=== PATIENT | male | born 1965 | race Caucasian/White ===

== ENCOUNTER 2021-04-04 20:48 | Emergency (ER) | payer MEDICARE, SELFPAY ==
[2021-04-04 20:56] VITALS: BP 148/116; PULSE 94; RESP 22; TEMP 36.8; O2SAT 95; BMI 32.3
--- NOTE | 2021-04-04 21:01 | CTR_ITS ---
PROCEDURE INFORMATION: Exam: CT Head Without Contrast Exam date and time: 04/04/2021 9:01 PM Age: 55 years old Clinical indication: Pain; Headache TECHNIQUE: Imaging protocol: Computed tomography of the head without contrast. Radiation optimization: All CT scans at this facility use at least one of these dose optimization techniques: automated exposure control; mA and/or kV adjustment per patient size (includes targeted exams where dose is matched to clinical indication); or iterative reconstruction. COMPARISON: No relevant prior studies available. RADIATION DOSE METRICS: Total DLP (mGy-cm): 1605.92 FINDINGS: Brain: Normal. No hemorrhage. Unremarkable white matter. No mass effect. Cerebral ventricles: No ventriculomegaly. Paranasal sinuses: Visualized sinuses are unremarkable. No fluid levels. Mastoid air cells: Visualized mastoid air cells are well aerated. Bones/joints: Unremarkable. No acute fracture. Soft tissues: Unremarkable. CT/CT head wo con* [id number] IMPRESSION: Negative for intracranial hemorrhage or mass effect. Radiation Dose CTDIVOL = (mGy): DLP = 1605.92 (mGy-cm)
--- NOTE | 2021-04-04 21:03 | W.ED.GENADLT ---
HPI - General Adult General: Chief complaint: Headache Stated complaint: HEAD PAIN Time Seen by Provider: 04/04/21 20:59 History of Present Illness: HPI narrative: This patient is a 55-year-old male who presents to the emergency department for severe headache. Patient states he has had his headache for the couple days. Patient states he has a long history of chronic headaches and he recently came down to visit his mother from [place]. When asked with patient takes pain medications he states gabapentin another stopped but would not elaborate what he takes. Advised the patient 1 more and happy to help him with his headache and I have ordered Toradol Benadryl Reglan combo for his headache. Patient states he has not had a CT scan of the head so will obtain a CT of the head. We will also get a urine drug screen on the patient. Patient states understanding. Onset (ago): day(s) Location: head Radiation: non-radiation Quality: aching and sharp Associated symptoms: Reports headache(s); Deny chest pain, dyspnea, nausea, rash, palpitations or vomiting Review of Systems General: Reports: 10 or more systems reviewed and unremarkable except in HPI and below Const: Denies: fever(s), chills, body aches or fatigue Eyes: Denies: change in vision or blurry vision ENMT: Denies: throat pain, hoarseness or mouth pain Card: Denies: chest pain, palpitations, irregular heart rhythm, edema, swelling of feet/ankles or lightheadedness Resp: Denies: dyspnea, productive cough, non-productive cough, wheezing or pain on inspiration GI: Denies: abdominal pain, nausea or vomiting : Denies: flank pain, dysuria, urinary frequency, urinary urgency or urinary hesitancy Musc: Denies: neck pain, back pain, extremity pain, extremity swelling, joint pain, joint swelling, joint redness, joint warmth or limited range of motion Skin/Breast: Denies: rash, pruritus, erythema or skin tenderness Neuro: Reports: headache(s); Denies: numbness in extremities or weakness in extremities Psych: Denies: anxiety or depression Physical Exam Const: COMMON NORMALS: no acute distress, average body habitus, patient oriented x3, no limitations, healthy appearing, alert and well nourished HENMT: COMMON NORMALS: normocephalic, atraumatic, hearing grossly normal bilaterally, external ears normal, EAC's normal, TM's normal bilaterally, Normal external nose present, Normal nasal mucous membranes and turbinates present, moist oral mucous membranes, oropharynx normal, dentition normal and gingiva normal HEAD & SCALP: normocephalic and atraumatic NOSE: Normal external nose present and Normal nasal mucous membranes and turbinates present EXTERNAL EAR: Yes external ears normal EXTERNAL AUDITORY CANAL: EAC's normal TYMPANIC MEMBRANE: TM's normal bilaterally Neck/C-Spine: COMMON NORMALS: full ROM, no lymphadenopathy, supple, no meningeal signs, no JVD, Thyroid normal and No carotid bruits THYROID: Thyroid normal Chest: COMMONS NORMALS: normal inspection of the chest, normal palpation of entire chest wall, normal inspection of the breasts and normal palpation of the breasts Breast/axilla inspection: Yes normal inspection of the breasts BREAST/AXILLA PALPATION: Yes normal palpation of the breasts Resp: COMMON NORMALS: normal respiratory effort, No retractions, No use of accessory muscles, clear to auscultation bilaterally and percussion normal AUSCULTATION: clear to auscultation bilaterally PERCUSSION: percussion normal Cardio: COMMON NORMALS: no JVD, regular rate, regular rhythm, S1 normal heart sound present, S2 normal heart sound present, No gallops present (Cardio), No clicks present (Cardio), No murmurs present (Cardio), No rub (Cardio) and Peripheral pulses 2+ throughout RATE: regular rate RHYTHM: regular rhythm HEART SOUNDS: S1 normal heart sound present and S2 normal heart sound present PERIPHERAL PULSES: Peripheral pulses 2+ throughout GI: COMMON NORMALS: Normal to inspection, nondistended, normoactive bowel sounds present, Soft to palpation, non-tender, No hepatosplenomegaly present, no masses and no bruits PALPATION: Yes Soft to palpation and Yes No hepatosplenomegaly present : COMMON NORMALS: Yes no CVA tenderness BLADDER/KIDNEY EXAM: Yes no CVA tenderness Back/Pelvis: COMMON NORMALS: no CVA tenderness, thoracic and lumbar spine normal to inspection, no thoracic nor lumbar tenderness, thoraco-lumbar ROM normal and straight leg raise negative bilaterally Extremity: COMMON NORMALS: normal to inspection, full ROM, capillary refill normal, no joint enlargement, no clubbing, cyanosis or edema, no calf tenderness and no pedal edema Neuro: COMMON NORMALS: patient oriented x3 SENSORIUM/ORIENTATION: Yes alert MENINGEAL SIGNS: Yes no meningeal signs Course Reevaluation(s): Reevaluation #1: Patient states headache is relieved after pain medication. CT scan of the head negative. Patient be discharged home with diclofenac. Patient is to follow-up with primary care physician in 2 to 3 days as needed. Time: 21:57 Vital Signs: Vital signs: Vital Signs Temperature 98.2 F 04/04/21 20:56 Pulse Rate 94 04/04/21 20:56 Respiratory Rate 22 H 04/04/21 20:56 Blood Pressure 148/116 04/04/21 20:56 Pulse Oximetry 95 04/04/21 20:56 MDM - General Adult MDM Narrative: Medical decision making narrative: This patient is a 55-year-old male who presents to the emergency department for severe headache. Patient states he has had his headache for the couple days. Patient states he has a long history of chronic headaches and he recently came down to visit his mother from [place]. When asked with patient takes pain medications he states gabapentin another stopped but would not elaborate what he takes. Advised the patient 1 more and happy to help him with his headache and I have ordered Toradol Benadryl Reglan combo for his headache. Patient states he has not had a CT scan of the head so will obtain a CT of the head. We will also get a urine drug screen on the patient. Patient states headache is relieved after pain medication. CT scan of the head negative. Patient be discharged home with diclofenac. Patient is to follow-up with primary care physician in 2 to 3 days as needed. Medical Records: Attestation: I reviewed the patient's medical records. Lab Data: Attestation: I reviewed the patient's lab results. Labs: Lab Results 04/04/21 04/04/21 Range/Units 21:25 21:25 Urine Color Yellow (Yellow) Urine Appearance Clear (CLEAR) Urine pH 6.5 (5-7) Ur Specific Gravit y 1.015 (1.005-1.030) Urine Protein Neg (Negative) Urine Glucose (UA) Norm (Normal) Urine Ketones Negative (Negative) Urine Blood Neg (Negative) Urine Nitrate Negative (Negative) Urine Bilirubin Neg (Negative) Urine Urobilinogen 1 H (Negative) mg/dL Ur Leukocyte Maude ase Negative (Negative) Urine Opiates Scre en Negative (Negative) ng/mL Ur Barbiturates Sc reen Negative (Negative) ng/mL Ur Phencyclidine S crn Negative (Negative) ng/mL Ur Amphetamines Sc reen Negative (Negative) ng/mL U Benzodiazepines Scrn Negative (Negative) ng/mL Urine Cocaine Scre en Negative (Negative) ng/mL U Marijuana (THC) Screen Positive H (Negative) ng/mL Imaging Data^: CT Head: Attestation: I personally reviewed and interpreted this imaging study as follows: Radiologist's impression: IMPRESSION: Negative for intracranial hemorrhage or mass effect. Discharge Plan Discharge Patient Disposition: Home Clinical Impression: Headache Condition: Stable Prescriptions: New diclofenac sodium 75 mg tablet,delayed release (DR/EC) 75 mg PO BID PRN (Reason: pain) Qty: 20 RF: 0 Discharge Orders: Discharge ED (Routine); Ordered 04/04/21 Ordered By: Ildefonso Mayer Discharge Diet: Advance as tolerated Discharge Activity: Resume usual activity Patient Instructions: Opioid Safety Activity Restrictions/Additional Instructions: Patient be discharged home with diclofenac. Patient is to follow-up with primary care physician in 2 to 3 days as needed. Coding Level of Care Code ED Chalk Machine Operator for Ugo Fwd Exam Comprehensive
[2021-04-04 21:22] VITALS: BP 148/86; PULSE 84; RESP 20; O2SAT 97
[2021-04-04 21:31] LABS: Add Urine Microscopic? NO; Charge for UA Resulting for Rev
[2021-04-04] MEDS: diphenhydrAMINE 50 mg/mL SDV 1mL IVP (21:35)
[2021-04-04 21:39] LABS: Urine Appearance Clear (CLEAR); Urine Color Yellow (Yellow); pH Urine 6.5 (5-7)
[2021-04-04 21:40] LABS: Bilirubin Urine Neg (Negative); Blood Urine Neg (Negative); Glucose Urine UA Norm (Normal); Ketones Urine Negative (Negative); Leukocyte Esterase Urine Negative (Negative); Nitrate Urine Negative (Negative); Protein Urine Neg (Negative); Specific Gravity, Urine 1.015 (1.005-1.030); Urobilinogen Urine 1 mg/dL (Negative)
[2021-04-04] MEDS: ketorolac 30 mg/mL INJ 15 MG IVP (21:40)
[2021-04-04] MEDS: metoclopramide 5 mg/mL SDV 2 mL 10 MG IVP (21:45)
[2021-04-04 21:49] LABS: Amphetamines Screen Urine Negative (Negative); Barbiturates Screen Urine Negative (Negative); Benzodiazepines Screen Urine Negative (Negative); Cocaine Screen Urine Negative (Negative); Opiate Screen Urine Negative (Negative); PCP Screen Urine Negative (Negative); THC Screen Urine Positive (Negative)
[2021-04-04 23:07] VITALS: BP 140/82; PULSE 80; RESP 20; O2SAT 97
== END 2021-04-04 23:08 | disposition home or self-care (01) ==
PROVIDERS: Emergency Provider Emergency Medicine
DX: R51.9 Headache, unspecified (principal); Z79.899 Other long term (current) drug therapy
CPT/HCPCS: 70450; 80306; 81003; 96374; 96375; 99284; J1200; J1885; J2765

== ENCOUNTER 2021-06-05 10:37 | Outpatient (CLI) | payer MEDICARE, SELFPAY ==
--- NOTE | 2021-06-05 10:53 | CT_ITS ---
WS: [id number] LDCT LUNG CANCER SCREENING TECHNIQUE: Noncontrast CT of the chest with coronal and sagittal reformatted images. CLINICAL INFORMATION: NICOTINE DEPENDENCE, CIGARETTES COMPARISON: None. DLP: 55.77 mGy.cm DIvol: 1.[address] scans at [facility] use at least one of these dose optimization techniques: automat ed exposure control; mA and/or kV adjustment per patient size (includes targeted exams where dose is matched to clinical indication); or iterative reconstruction. FINDINGS: Subsegmental atelectasis in the lingula and right middle lobe. Hazy atelectasis in the lung bases. Ao rtic calcification. No mediastinal or hilar lymphadenopathy. Coronary calcification. Normal GE juncti on. No suspicious pulmonary parenchymal opacities. Mild thoracic kyphosis. CT/CT lung screening [id number] IMPRESSION: LUNG-RADS: 1-Negative FOLLOW UP: 12 Month: Continue annual screening with LDCT
== END 2021-06-05 10:38 | disposition home or self-care (01) ==
LOC: RAD 10:44
PROVIDERS: PCP Family Medicine; Visit Provider Family Medicine
DX: Z12.2 Encounter for screening for malignant neoplasm of respiratory organs (principal); Z72.0 Tobacco use; J98.11 Atelectasis; I70.0 Atherosclerosis of aorta; I25.10 Atherosclerotic heart disease of native coronary artery without angina pectoris
CPT/HCPCS: 71271

== ENCOUNTER 2021-08-08 09:23 | Emergency (ER) | payer MEDICARE, SELFPAY ==
[2021-08-08 09:26] VITALS: BP 147/90; PULSE 92; RESP 20; TEMP 36.9; O2SAT 96; BMI 29.9
[2021-08-08 09:29] VITALS: BP 143/81; PULSE 98; O2SAT 96
--- NOTE | 2021-08-08 09:31 | XR_ITS ---
WS: [id number] XR chest 1V portable [id number] REASON FOR EXAM: dyspnea/cough FINDINGS: Mild tortuosity of the thoracic aorta. Normal heart size. [place]-shaped density adjacent to the left heart border. Screening CT scan 06/05/2021 demonstrates t his to be an area of scarring and/or atelectasis in the lingula of the left lung. No other significant pulmonary parenchymal or pleural abnormality identified. XR/XR chest 1V portable [id number] IMPRESSION: No acute chest abnormality.
--- NOTE | 2021-08-08 09:31 | ECG_ITS ---
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 Measurements Intervals [place] Rate: 89 P: 6 MS: 202 QRS: 11 QRSD: 113 T: 51 QT: 363 QTc: 442 Interpretive Statements SINUS RHYTHM INCOMPLETE RIGHT BUNDLE BRANCH BLOCK [90+ ms QRS DURATION, TERMINAL R IN V1/V2, 40+ ms S IN I/aVL/V4/V5/V6] No previous ECG available for comparison Electronically Signed On 08-08-2021 19:56:18 CDT by Je Cohn M.D. [id number]
--- NOTE | 2021-08-08 09:32 | ED_ITS ---
HPI - SOB/Dyspnea General: Chief Complaint: Shortness of Breath/Dyspnea Stated Complaint: RESP DISTRESS Time Seen by Provider: 08/08/21 09:25 History of Present Illness: HPI Narrative: 55-year-old male presents emergency room with cough and congestion. Has had this it began yesterday with a productive cough low-grade subjective fever. He denies any chest pain. Patient has a history of ALS and has chronic lower extremity pain which is unchanged from his baseline. When I arrived in the room he appears to be hyperventilating on room air his sats are 96 to 97% at he is mildly diaphoretic. He has previously been vaccinated for Covid and received both shots completing it several months ago. MD elicited complaint: shortness of breath and cough Pertinent past history: COPD Onset (ago): day(s) (1) Severity: moderate Exacerbating factors: nothing Relieving factors: nothing Known history of: COPD Associated symptoms: Reports chest congestion, cough, diaphoresis, extremity pain, fever(s) (Subjective) and nausea; Deny abdominal pain, chest pain, dizziness, hemoptysis, lightheadedness, myalgias, orthopnea, palpitations, paresthesias, polydipsia, polyuria, rash, sense of impending doom, syncope or vomiting Treatment prior to arrival: none Review of Systems Const: Reports: fever(s) (Subjective) and diaphoresis ENMT: Denies: throat pain, ear or mastoid pain, nasal discharge or nasal congestion Card: Denies: chest pain, palpitations, lightheadedness, syncope or orthopnea Resp: Reports: chest congestion; Denies: hemoptysis GI: Reports: nausea; Denies: abdominal pain or vomiting : Denies: flank pain, dysuria, urinary frequency or urinary urgency Musc: Reports: extremity pain Skin/Breast: Denies: rash or pruritus Neuro: Denies: dizziness Endo: Denies: polyuria or polydipsia PFSH ED PFSH: Medical History ALS (amyotrophic lateral sclerosis) Hyperlipidemia Hypertension Myocardial infarction Smoking Surgical History History of back surgery History of PTCA Family History Mother Hyperlipidemia Hypertension Thyroid disease Bleeding disorder Father Hypertension Alcoholism CAD (coronary artery disease) Cancer Diabetes Brother Hyperlipidemia Hypertension Alcoholism Family/Other CAD (coronary artery disease) Lung disease Denies family history of Clotting disorder Dementia Chronic kidney disease (CKD) Suicide Anesthesia complication Stroke Social History Smoking and tobacco status: current every day smoker Alcohol intake: never Physical Exam Const: COMMON NORMALS: no acute distress GENERAL APPEARANCE: cooperative ORIENTATION/CONSCIOUSNESS: Yes awake, Yes oriented to person, Yes oriented to place and Yes oriented to time HENMT: COMMON NORMALS: normocephalic, atraumatic and hearing grossly normal bilaterally HEAD & SCALP: normocephalic and atraumatic Neck/C-Spine: COMMON NORMALS: no JVD Resp: COMMON NORMALS: normal respiratory effort, No retractions, No use of accessory muscles and clear to auscultation bilaterally AUSCULTATION: clear to auscultation bilaterally Cardio: COMMON NORMALS: no JVD, regular rate, regular rhythm and No murmurs present (Cardio) RATE: regular rate RHYTHM: regular rhythm GI: COMMON NORMALS: Soft to palpation and No hepatosplenomegaly present AUSCULTATION: Yes normoactive bowel sounds PALPATION: Yes Soft to palpation, No Tenderness to palpation present (GI), No Guarding due to palpation present (GI) and Yes No hepatosplenomegaly present Extremity: COMMON NORMALS: normal to inspection, capillary refill normal, no clubbing, cyanosis or edema, no calf tenderness and no pedal edema OTHER: Dorsalis pedis pulse palpable bilaterally lower extremities cool to the touch no leg edema negative Homans Neuro: SENSORIUM/ORIENTATION: Yes oriented to person, Yes oriented to place and Yes oriented to time Skin: COMMON NORMALS: no rashes or lesions noted GENERAL SKIN EXAM: no rashes or lesions noted Course Vital Signs: Vital signs: Vital Signs Temperature 98.5 F 08/08/21 09:26 Pulse Rate 86 08/08/21 13:30 Respiratory Rate 20 H 08/08/21 09:26 Blood Pressure 123/76 08/08/21 13:30 Pulse Oximetry 95 08/08/21 13:30 MDM - SOB/Dyspnea MDM Narrative: Medical decision making narrative: Patient is hyperventilating on arrival I had difficulty getting the first ABG and refused to allow the second a second attempt. He is extremely anxious reviewed labs imaging and EKG as found on the chart he is improved and feeling better we will go and discharge him home given some Ativan just prior to discharge discharge him home with hydroxyzine. On arrival he appeared to be having a anxiety attack and hyperventilating. Discussed with the family. And follow-up with his primary care doctor. Lab Data: Labs: Lab Results 08/08/21 08/08/21 08/08/21 09:35 09:35 09:35 WBC 14.2 10^3/uL H 10 ^3/uL (4.0-10.0) RBC 4.47 10^6/uL 10^6 /uL (4.1-5.3) Hgb 13.3 g/dL g/dL (11.7-16.6) Hct 39.5 % L % (42.0-52.0) MCV 88.4 fl fl (80-94) MCH 29.8 pg pg (28.0-34.0) MCHC 33.7 g/dL g/dL (30.0-36.0) RDW 12.8 % % (12.1-15.1) Plt Count 255 10^3/cmm 10^3 /cmm (130-400) MPV 10.6 fL H fL (7.4-10.4) Neut % (Auto) 79.2 % % Lymph % (Auto) 11.3 % % [place] % (Auto) 7.7 % % Eos % (Auto) 1.1 % % Baso % (Auto) 0.4 % % Neut # (Auto) 11.27 10^3/uL H 1 0^3/uL (1.8-7.7) Lymph # (Auto) 1.6 10^3/uL 10^3/ uL (0.8-4.8) [place] # (Auto) 1.1 10^3/uL H 10^ 3/uL (0.2-0.9) Eos # (Auto) 0.2 10^3/uL 10^3/ uL (0.0-0.8) Baso # (Auto) 0.1 10^3/uL 10^3/ uL (0.0-0.1) Nucleated RBC % (a uto) 0 % % Nucleated RBCs # 0.0 /100WBC /100W BC Sodium 135 mmol/L L mmol /L (136-145) Potassium 4.4 mmol/L mmol/L (3.5-5.1) Chloride 102 mmol/L mmol/L (98-107) Carbon Dioxide 21 mmol/L L mmol/ L (22-29) Anion Gap 16.4 (5-19) BUN 15 mg/dL mg/dL (6-20) Creatinine 0.4 mg/dL L mg/dL (0.7-1.2) GFR Calculation 222.5 mL/min H mL /min (90-130) Glucose 96 mg/dL mg/dL (65-115) Calculated Osmolal ity 281 mOsm/kg L mOs m/kg (285-295) Calcium 8.9 mg/dL mg/dL (8.5-10.5) Total Bilirubin 0.3 mg/dL mg/dL (0.15-1.2) AST 11 U/L U/L (0-40) ALT 13 U/L U/L (0-41) Alkaline Phosphata se 96 IU/L IU/L (40-130) Creatine Kinase 519 U/L H* U/L (39-308) Troponin T Baselin e 32 ng/L H ng/L (0-15) Troponin T 120 Min [place] Troponin T Total Protein 6.3 g/dL L g/dL (6.6-8.7) Albumin 4.2 g/dL g/dL (3.5-5.2) Globulin 2.1 g/dL g/dL (1.3-4.6) 08/08/21 11:45 WBC RBC Hgb Hct MCV MCH MCHC RDW Plt Count MPV Neut % (Auto) Lymph % (Auto) [place] % (Auto) Eos % (Auto) Baso % (Auto) Neut # (Auto) Lymph # (Auto) [place] # (Auto) Eos # (Auto) Baso # (Auto) Nucleated RBC % (a uto) Nucleated RBCs # Sodium Potassium Chloride Carbon Dioxide Anion Gap BUN Creatinine GFR Calculation Glucose Calculated Osmolal ity Calcium Total Bilirubin AST ALT Alkaline Phosphata se Creatine Kinase Troponin T Baselin e Troponin T 120 Min [place] 18.14 ng/L H ng/L (0-15) [place] Troponin T -13.86 ABS# L ABS # (0-10) Total Protein Albumin Globulin Discharge Plan Discharge Patient Disposition: Home Clinical Impression: Anxiety, ALS (amyotrophic lateral sclerosis), Hypertension Condition: Stable Prescriptions: New hydroxyzine HCl 25 mg tablet 25 mg PO Q6H PRN (Reason: anxiety) Qty: 20 RF: 0 No Action metoprolol tartrate 25 mg tablet 25 mg PO DAILY RF: 0 lisinopril 40 mg tablet 40 mg PO DAILY RF: 0 atorvastatin 40 mg tablet 40 mg PO DAILY RF: 0 carbamazepine 100 mg tablet extended release 12 hr 100 mg PO BID RF: 0 furosemide [Lasix] 40 mg tablet 40 mg PO DAILY RF: 0 gabapentin 600 mg tablet 1,200 mg PO TID RF: 0 riluzole 50 mg tablet 50 mg PO Q12H RF: 0 albuterol sulfate 90 mcg/actuation aerosol powdr breath activated 2 inh inhalation Q6H PRNRF: 0 aspirin [Adult Aspirin Regimen] 81 mg tablet,delayed release (DR/EC) 81 mg PO DAILY RF: 0 ondansetron HCl [Zofran] 4 mg tablet 4 mg PO Q4H PRN (Reason: nausea and vomiting) RF: 0 meloxicam 7.5 mg tablet 7.5 mg PO DAILY PRNRF: 0 diclofenac sodium 75 mg tablet,delayed release (DR/EC) 75 mg PO BID PRN (Reason: pain) Qty: 20 RF: 0 Discharge Orders: Discharge ED (Routine); Ordered 08/08/21 Ordered By: Mike Leyva Referrals: Devin Farnsworth MD [Primary Care Provider] - Discharge Diet: Usual diet Discharge Activity: Limit activity as instructed Patient Instructions: Opioid Safety Coding Level of Care Code ED Curam Developer for Chg Fwd Exam Comprehensive
[2021-08-08 09:46] LABS: Basophils # 0.1 10^3/uL (0.0-0.1); Basophils % 0.4 %; Eosinophils # 0.2 10^3/uL (0.0-0.8); Eosinophils % 1.1 %; Hematocrit 39.5 % (42.0-52.0); Hemoglobin 13.3 g/dL (11.7-16.6); Lymphocytes # 1.6 10^3/uL (0.8-4.8); Lymphocytes % 11.3 %; Mean Corpuscular HGB Conc 33.7 g/dL (30.0-36.0); Mean Corpuscular Hemoglobin 29.8 pg (28.0-34.0); Mean Corpuscular Volume 88.4 fl (80-94); Mean Platelet Volume 10.6 fL (7.4-10.4); Monocytes # 1.1 10^3/uL (0.2-0.9); Monocytes % 7.7 %; Neutrophils # 11.27 10^3/uL (1.8-7.7); Neutrophils % 79.2 %; Nucleated Red Blood Cells % 0 %; Platelet Count 255 10^3/cmm (130-400); Red Blood Count 4.47 10^6/uL (4.1-5.3); Red Cell Distribution Width 12.8 % (12.1-15.1); White Blood Count 14.2 10^3/uL (4.0-10.0)
[2021-08-08 09:59] LABS: Troponin(5th) Baseline 32 ng/L (0-15)
[2021-08-08 10:01] LABS: Alanine Aminotransferase 13 U/L (0-41); Albumin Level 4.2 g/dL (3.5-5.2); Alkaline Phosphatase 96 IU/L (40-130); Anion Gap 16.4 (5-19); Aspartate Amino Transferase 11 U/L (0-40); Blood Urea Nitrogen 15 mg/dL (6-20); Calcium 8.9 mg/dL (8.5-10.5); Carbon Dioxide 21 mmol/L (22-29); Chloride 102 mmol/L (98-107); Globulin 2.1 g/dL (1.3-4.6); Glomerular Filtration Rate 222.5 mL/min (90-130); Glucose 96 mg/dL (65-115); Osmolality Calculated 281 mOsm/kg (285-295); Potassium 4.4 mmol/L (3.5-5.1); Sodium 135 mmol/L (136-145); Total Bilirubin 0.3 mg/dL (0.15-1.2); Total Protein 6.3 g/dL (6.6-8.7)
[2021-08-08 10:15] LABS: Creatine Phosphokinase 519 U/L (39-308)
--- NOTE | 2021-08-08 11:31 | ECG_ITS ---
[facility] Test Date: 2021-08-08 Pat Name: Ag Lazo Department: Room: Gender: Male Gta: : 1965 Requested By: Mike Davenport Order Number: [id number] Wilder MD: Je Cohn M.D. Measurements Intervals [place] Rate: 87 P: -8 FL: 183 QRS: 30 QRSD: 96 T: 66 QT: 354 QTc: 427 Interpretive Statements SINUS RHYTHM Compared to ECG 08/08/2021 09:44:07 Incomplete right bundle-branch block no longer present Electronically Signed On 08-08-2021 20:11:18 CDT by Je Cohn M.D. [email or web address] regional medical [email or web address] general [email or web address]/store/OM/[id number]
[2021-08-08 12:07] VITALS: BP 123/76; PULSE 86; O2SAT 95
[2021-08-08 12:36] LABS: Troponin 5 2HR 18.14 ng/L (0-15)
[2021-08-08 12:37] LABS: Troponin 5 2HR Delta -13.86 ABS# (0-10)
--- NOTE | 2021-08-08 12:56 | PC.NURSE ---
EKG PERFORMED BY THIS NURSE.
[2021-08-08 13:30] VITALS: BP 123/76; PULSE 86; O2SAT 95
== END 2021-08-08 13:32 | disposition home or self-care (01) ==
PROVIDERS: Emergency Provider Family Medicine; PCP Family Medicine
DX: F41.9 Anxiety disorder, unspecified (principal); G12.21 Amyotrophic lateral sclerosis; I10 Essential (primary) hypertension; Z79.82 Long term (current) use of aspirin; E78.5 Hyperlipidemia, unspecified; I25.2 Old myocardial infarction; F17.210 Nicotine dependence, cigarettes, uncomplicated
CPT/HCPCS: 71045; 80053; 82550; 84484; 85025; 93005; 99283